=== PATIENT | female | born 1970 | race Caucasian/White ===

== ENCOUNTER 2022-01-24 12:10 | Emergency (ER) | payer OTHER ==
[~2022-01-24] VITALS: Ht 152.4 cm; Wt 65.0 kg
--- NOTE | 2022-01-24 12:27 | NUR ---
Pt going to x-ray w/ Tamera, accounting technician.
[2022-01-24] MEDS ORDERED: ondansetron 4mg/5ml UD cup PO ONE (14:50)
[2022-01-24] MEDS ORDERED: HYDROcodone/acetaminophen 5mg/325mg tablet PO ONE (14:50)
[2022-01-24] MEDS ORDERED: HYDR-3965 PO (14:51)
[2022-01-24] MEDS ORDERED: ONDA8TAB13 PO (14:51)
[2022-01-24 15:02] VITALS: BP 144/86
== END 2022-01-24 15:04 | disposition home or self-care (01) ==
LOC: ER 12:11
DX: R07.81 Pleurodynia (principal)
CPT/HCPCS: 71101; 99283